=== PATIENT | male | born 1955 | race Caucasian/White ===

== ENCOUNTER 2024-06-02 18:08 | Emergency (ER) | payer OTHER ==
[~2024-06-02] VITALS: Ht 177.8 cm; Wt 88.7 kg
[2024-06-02] MEDS ORDERED: APIXABAN 5 MG TAB PO ONE (20:30)
[2024-06-02] MEDS ORDERED: ELIQUIS5 MG PO (21:00)
[2024-06-02 21:03] VITALS: BP 151/86
== END 2024-06-02 21:26 | disposition home or self-care (01) ==
LOC: ED 18:08
DX: I82.462 Acute embolism and thrombosis of left calf muscular vein (principal); I82.812 Embolism and thrombosis of superficial veins of left lower extremity; I82.412 Acute embolism and thrombosis of left femoral vein; I10 Essential (primary) hypertension; Z86.711 Personal history of pulmonary embolism
CPT/HCPCS: 93971; 99283-25